=== PATIENT | female | born 1955 ===

== ENCOUNTER 2018-07-29 15:04 | Emergency (ER) | payer MEDICAID ==
[~2018-07-29] VITALS: Ht 175.3 cm; Wt 68.2 kg
[2018-07-29 15:09] VITALS: Ht 175.3 cm; Wt 68.2 kg
[2018-07-29] MEDS ORDERED: MYSOLINE250 MG PO (15:28)
[2018-07-29] MEDS ORDERED: FUROSEMIDE20 MG PO (15:28)
[2018-07-29] MEDS ORDERED: REMERON15 MG PO (15:29)
[2018-07-29] MEDS ORDERED: CALCIUM 600 +1 EAC3 PO (15:30)
[2018-07-29] MEDS ORDERED: K-DUR20 MEQ PO (15:33)
[2018-07-29] MEDS ORDERED: KLONOPIN1 MG PO (15:34)
[2018-07-29] MEDS ORDERED: SEROQUEL50 MG PO (15:34)
[2018-07-29] MEDS ORDERED: CHRONULAC30 ML PO (15:35)
[2018-07-29] MEDS ORDERED: DILANTIN30 MG (15:36)
[2018-07-29 16:11] LABS: APPEARANCE CLEAR (CLEAR); BILIRUBIN NEGATIVE (NEGATIVE); COLOR DK YELLOW (YELLOW); GLUCOSE NEGATIVE (NEGATIVE); HEMATOCRIT 44.1 % (36.0-48.0); HEMOGLOBIN 14.6 g/dL (12-16); KETONE SMALL mg/dL (NEGATIVE); MCH 32.2 pg (26.0-34.0); MCHC 33.1 g/dL (31.0-37.0); MCV 97.4 fL (80.0-100.0); MEAN PLATELET VOLUME 10.4 fL (7.4-10.4); NITRITE NEGATIVE (NEGATIVE); PLATELET COUNT 156 10x3/uL (130-400); PROTEIN NEGATIVE (NEGATIVE); RBC 4.53 10x6/uL (4.00-5.40); RDW 13.8 % (11.5-14.5); SPECIFIC GRAVITY 1.015 (1.005-1.020); UROBILINOGEN NORMAL (NORMAL)
[2018-07-29 16:53] LABS: LYMPHOCYTES 64 % (15-50); MONOCYTES 5 % (2-11); NEUTROPHILS 31 % (40-80); PLATELET ESTIMATE NORMAL
[2018-07-29 17:03] LABS: ALBUMIN 3.1 g/dL (3.4-5.0); ALKALINE PHOSPHATASE 65 U/L (46-116); ALT (SGPT) 35 U/L (10-68); BILIRUBIN - TOTAL 0.28 mg/dL (0.2-1.3); CALC OSMOLALITY 286 mosm/kg (275-300); CALCIUM 8.9 mg/dL (8.5-10.1); CARBON DIOXIDE 30.8 mmol/L (21.0-32.0); CHLORIDE - SERUM 105 mmol/L (98-107); CREATININE - SERUM 0.8 mg/dL (0.6-1.3); GLUCOSE 116 mg/dL (74-106); POTASSIUM - SERUM 4.8 mmol/L (3.5-5.1); PROTEIN - SERUM 6.9 g/dL (6.4-8.2); SODIUM 143 mmol/L (136-145); UREA NITROGEN 14 mg/dL (7-18); eGFR NON AFRICAN AMERICAN 76 mL/min (90-120)
[2018-07-29 17:07] LABS: PHENYTOIN (DILANTIN) 24.5 ug/mL (10.0-20.0); VALPROIC ACID (DEPAKOTE) 76.6 ug/mL (50.0-100.0)
[2018-07-29 19:38] VITALS: BP 88/63
== END 2018-07-29 19:47 ==
LOC: D.ER 15:04
PROVIDERS: Emergency Medicine
DX: T42.0X5A Adverse effect of hydantoin derivatives, initial encounter (principal); Y92.129 Unspecified place in nursing home as the place of occurrence of the external cause; W18.30XA Fall on same level, unspecified, initial encounter; Y93.89 Activity, other specified; Z86.59 Personal history of other mental and behavioral disorders; G40.909 Epilepsy, unspecified, not intractable, without status epilepticus